=== PATIENT | male | born 1955 | race Caucasian/White ===

== ENCOUNTER 2017-04-10 05:57 | Day surgery (SDC) | payer MEDICAID ==
[~2017-04-10] VITALS: Ht 175.3 cm; Wt 116.6 kg
[2017-04-10] MEDS ORDERED: PHENYLEPHRINE HCL 10% OPHTH DROPS 5ML RIGHTEYE ONE (06:25)
[2017-04-10] MEDS ORDERED: TROPICAMIDE 1% OPHTH DROPS 15ML RIGHTEYE ONE (06:25)
[2017-04-10] MEDS ORDERED: CYCLOPENTOLATE HCL 1% OPHTH DROPS 2ML RIGHTEYE ONE (06:25)
[2017-04-10] MEDS ORDERED: BALANCED SALT IRRIG SOLN COMB1 500ML OP SCH (07:00)
[2017-04-10] MEDS ORDERED: LACTATED RINGERS 1,000 ML IV SCH (07:15)
[2017-04-10] MEDS ORDERED: MIDAZOLAM HCL 2 MG/2 ML VIAL ONE (08:08)
[2017-04-10] MEDS ORDERED: FENTANYL CITRATE/PF 50MCG/ML 2ML VIAL ONE (08:10)
[2017-04-10] MEDS ORDERED: LIDOCAINE HCL 1% 20ML VIAL (Pyxis) INJ ONE (08:13)
[2017-04-10] MEDS ORDERED: PROPOFOL 200MG/20ML VIAL IV ONE (08:13)
[2017-04-10] MEDS ORDERED: HYALURONATE SODIUM 14 MG/ML 0.85ML SYRINGE IO ONE ×2 (08:23→08:39)
[2017-04-10] MEDS ORDERED: SODIUM CHLORIDE 0.9% 1,000 ML IV SCH (08:41)
[2017-04-10] MEDS ORDERED: ONDANSETRON HCL 4MG/2ML VIAL IV PRN (08:45)
[2017-04-10] MEDS ORDERED: MORPHINE SULFATE 2 MG/ML CPJ (NOT FOR IM USE) IV PRN (08:45)
[2017-04-10] MEDS ORDERED: LEUP3.75 IM (08:55)
[2017-04-10] MEDS ORDERED: GABA-531 PO (08:55)
[2017-04-10] MEDS ORDERED: MAGN400C PO (08:55)
[2017-04-10] MEDS ORDERED: MIRA25TA PO (08:55)
[2017-04-10] MEDS ORDERED: RIBO100T9 PO (08:55)
[2017-04-10] MEDS ORDERED: CHOL20009 PO (08:55)
[2017-04-10] MEDS ORDERED: METO-296 PO (08:55)
[2017-04-10] MEDS ORDERED: SILO8CAP PO (08:55)
[2017-04-10] MEDS ORDERED: PHENYLEPHRINE HCL 10% OPHTH DROPS 5ML ONE (14:45)
[2017-04-10] MEDS ORDERED: PREDNISOLONE ACETATE 1% OPHTH DROPS 1ML ONE (14:45)
[2017-04-10] MEDS ORDERED: ACETYLCHOLINE CHLORIDE INTRAOCULAR SOLUTION 1:100 ELECTROLYTE DILUENT IO ONE (14:45)
[2017-04-10] MEDS ORDERED: TETRACAINE 0.5% OPHTH DROPS 4ML ONE (14:45)
[2017-04-10] MEDS ORDERED: CIPROFLOXACIN 0.3% OPHTH SOLN 2.5ML ONE (14:45)
[2017-04-10] MEDS ORDERED: BALANCED SALT IRRIG SOLN 15ML ONE (14:45)
[2017-04-10] MEDS ORDERED: LIDOCAINE HCL/PF 2% 20 MG/ML 10ML VIAL ONE (14:45)
== END 2017-04-10 10:35 | disposition home or self-care (01) ==
LOC: OR 05:57
PROVIDERS: ATTEND Ophthalmology
DX: H25.9 Unspecified age-related cataract (principal); E66.01 Morbid (severe) obesity due to excess calories; G47.30 Sleep apnea, unspecified; G62.9 Polyneuropathy, unspecified
CPT/HCPCS: 66984; J2250; J2405; J3010; J3490; J7120; J2704; V2632

== ENCOUNTER 2017-04-16 13:27 | Emergency (ER) | payer MEDICAID ==
[~2017-04-16] VITALS: Ht 175.3 cm; Wt 116.0 kg
[~2017-04-16 13:27] MED LIST: CHOL20009 PO; GABA-531 PO; LEUP3.75 IM; MAGN400C PO; METO-296 PO; MIRA25TA PO; RIBO100T9 PO; SILO8CAP PO
[2017-04-16 17:13] VITALS: BP 119/65
== END 2017-04-16 17:38 | disposition left against medical advice (07) ==
LOC: ER 16:47
DX: H92.02 Otalgia, left ear (principal); Z53.21 Procedure and treatment not carried out due to patient leaving prior to being seen by health care provider